=== PATIENT | female | born 1955 | race Caucasian/White ===

== ENCOUNTER → 2018-09-02 | Outpatient (CLI) | payer BC ==
--- NOTE | 2018-09-05 10:41 | MM ---
Reason for exam: screening (asymptomatic). Last mammogram was performed 1 year ago. History: Patient is postmenopausal. Family history of breast cancer in maternal aunt at age 50, breast cancer in maternal aunt, and breast cancer in paternal aunt at age 60. Benign stereotactic core biopsy of the left breast, August 12, 2004. Took estrogen for 14 years beginning at age 45. Physical Findings: A clinical breast exam by your physician is recommended on an annual basis and results should be correlated with mammographic findings. MG Screening Mammo w CAD Bilateral CC and MLO view(s) were taken. Prior study comparison: August 27, 2017, bilateral MG screening mammo w CAD. August 07, 2016, bilateral MG screening mammo w CAD. There are scattered fibroglandular densities. Stable benign calcifications. There is no discrete abnormality. ASSESSMENT: Benign, BI-RAD 2 RECOMMENDATION: Routine screening mammogram of both breasts in 1 year.
== END ==
LOC: RADMAMWWP 07:58
PROVIDERS: ATTEND Obstetrics & Gynecology
DX: Z12.31 Encounter for screening mammogram for malignant neoplasm of breast (principal); Z80.3 Family history of malignant neoplasm of breast
CPT/HCPCS: 77067

== ENCOUNTER → 2019-09-05 | Outpatient (CLI) | payer BC ==
--- NOTE | 2019-09-05 13:18 | MM ---
Reason for exam: screening (asymptomatic). Last mammogram was performed 1 year ago. History: Patient is postmenopausal. Family history of breast cancer in maternal aunt at age 50, breast cancer in maternal aunt, and breast cancer in paternal aunt at age 60. Benign stereotactic core biopsy of the left breast, August 12, 2004. Took estrogen for 14 years beginning at age 45. Physical Findings: A clinical breast exam by your physician is recommended on an annual basis and results should be correlated with mammographic findings. MG Screening Mammo w CAD Bilateral CC and MLO view(s) were taken. XCCL view(s) were taken of the left breast. Prior study comparison: September 02, 2018, bilateral MG screening mammo w CAD. August 27, 2017, bilateral MG screening mammo w CAD. There are scattered fibroglandular densities. There are benign appearing round calcifications bilaterally. Previous mammotome biopsy in the left breast. Asymmetric breast tissue left upper quadrant, stable. There is no discrete abnormality. ASSESSMENT: Benign, BI-RAD 2 RECOMMENDATION: Routine screening mammogram of both breasts in 1 year.
== END | disposition home or self-care (01) ==
LOC: RADMAMWWP 10:58
PROVIDERS: ATTEND Obstetrics & Gynecology
DX: Z12.31 Encounter for screening mammogram for malignant neoplasm of breast (principal); Z80.3 Family history of malignant neoplasm of breast
CPT/HCPCS: 77067

== ENCOUNTER → 2019-09-08 | Outpatient (CLI) | payer BC ==
--- NOTE | 2019-09-08 13:24 | BD ---
EXAMINATION TYPE: Axial Bone Density DATE OF EXAM: 09/08/2019 COMPARISON: 08/18/2014 CLINICAL HISTORY: Z 78.0 Height: 64 in Weight: 238 FRAX RISK QUESTIONS: Alcohol (3 or more units per day): no Family History (Parent hip fracture): no Glucocorticoids (More than 3mos): topical for skin condition; on & off since February (Ex: prednisone, prednisolone, methylprednisolone, dexamethasone, and hydrocortisone). History of Fracture in Adulthood: no Secondary Osteoporosis: 1. Type 1 Diabetes: no 2. Hyperthyroidism: no 3. Menopause before 45: no 4. Malnutrition: no 5. Chronic liver disease: no Rheumatoid Arthritis: no Current Tobacco Use: no RISK FACTORS HISTORY OF: Family History of Osteoporosis: no Active: yes Diet low in dairy products/other sources of calcium: no Postmenopausal woman: yes Take estrogen and/or progesterone medications: not now How long: age [age] Lost more than 2 inches in height since high school: no Frequent falls: no Poor Health: no Hyperparathyroidism: no Adrenal Insufficiency: no MEDICATIONS: Prednisone or other steroids: topical cream for skin condition; on & off since February Thyroid Medications: yes Which medication: Levothyroxine How Long: at least 10 years Osteoporosis Medications: no Additional Medications: blood pressure med Additional History: total left knee 2016; psoriatic arthritis, osteoarthritis, degenerative disc dise ase; complete hysterectomy age 45 EXAM MEASUREMENTS: Bone mineral densitometry was performed using the [employer] System. Bone mineral density as measured about the Lumbar spine is: ----- L1-L4(G/cm2): 1.321 T Score Values are as follows: ----- L2: 0.6 ----- L3: 1.8 ----- L4: 1.4 ----- L1-L4: 1.2 Bone mineral density has: Decreased -1.9% since study of: 08/18/2014 Bone mineral density about the R hip (g/cm2): 1.215 Bone mineral density about the L hip (g/cm2): 1.132 T Score values are as follows: -----R Neck: 1.3 -----L Neck: 0.7 -----R Total: 2.4 -----L Total: 2.2 Bone mineral density has:changed 0.0% since study of: 08/18/2014 IMPRESSION: Normal (Values between +1 and -1 indicate normal bone mass). Consider repeating this study in 5 year s or sooner if there is some new clinical indication. NOTE: T-SCORE=SD OF THE YOUNG ADULT MEAN.
== END ==
LOC: RADBDWWP 10:45
PROVIDERS: ATTEND Obstetrics & Gynecology
DX: N95.1 Menopausal and female climacteric states (principal)
CPT/HCPCS: 77080

== ENCOUNTER → 2019-10-30 | Outpatient (CLI) | payer BC ==
[2019-10-30 10:04] LABS: Basophils % (A) 1 %; Eosinophils # (A) 0.2 k/uL (0-0.7); Eosinophils % (A) 4 %; HCT 43.6 % (34.0-46.0); HGB 14.1 gm/dL (11.4-16.0); Lymphocytes # (A) 1.3 k/uL (1.0-4.8); Lymphocytes % (A) 28 %; MCH 30.1 pg (25.0-35.0); MCHC 32.3 g/dL (31.0-37.0); Mean Platelet Volume 7.5; Monocytes # (A) 0.3 k/uL (0-1.0); Monocytes % (A) 7 %; Neutrophils # (A) 2.6 k/uL (1.3-7.7); Neutrophils % (A) 57 %; Platelet Count 324 k/uL (150-450); RBC 4.67 m/uL (3.80-5.40); RDW 12.7 % (11.5-15.5); WBC 4.6 k/uL (3.8-10.6)
[2019-10-30 10:06] LABS: MCV 93.3 fL (80.0-100.0)
[2019-10-30 15:56] LABS: African American GFR (CKD) 78.3 (60.0-200.0); Non-African American GFR(CKD) 67.6 (60.0-200.0)
[2019-10-31 13:36] LABS: Hepatitis BE Antibody NEG (Negative)
[2019-10-31 13:38] LABS: Hepatitis BE Antigen NEG (Negative)
== END | disposition home or self-care (01) ==
LOC: LABWHC1 08:29
PROVIDERS: ATTEND Dermatology MOHS-Micrographic Surgery
DX: L40.0 Psoriasis vulgaris (principal); L40.59 Other psoriatic arthropathy; L40.8 Other psoriasis
CPT/HCPCS: 36415; 82565; 84450; 84460; 85025; 86038; 86480; 86707; 87350

== ENCOUNTER → 2020-05-03 | Outpatient (CLI) | payer BC ==
[2020-05-03 16:42] LABS: Basophils # (A) 0.1 k/uL (0-0.2); Basophils % (A) 1 %; Eosinophils # (A) 0.2 k/uL (0-0.7); Eosinophils % (A) 4 %; HCT 46.8 % (34.0-46.0); HGB 15.1 gm/dL (11.4-16.0); Lymphocytes # (A) 1.8 k/uL (1.0-4.8); Lymphocytes % (A) 31 %; MCH 31.1 pg (25.0-35.0); MCHC 32.4 g/dL (31.0-37.0); Monocytes # (A) 0.5 k/uL (0-1.0); Monocytes % (A) 9 %; Neutrophils % (A) 52 %; Platelet Count 255 k/uL (150-450); RBC 4.87 m/uL (3.80-5.40); RDW 13.3 % (11.5-15.5); WBC 5.8 k/uL (3.8-10.6)
[2020-05-04 14:58] LABS: African American GFR (CKD) 61.4 (60.0-200.0)
== END | disposition home or self-care (01) ==
LOC: LABWHC1 14:56
PROVIDERS: ATTEND Physician Assistant Medical
DX: L40.0 Psoriasis vulgaris (principal); L40.59 Other psoriatic arthropathy; L40.8 Other psoriasis
CPT/HCPCS: 36415; 82565; 84450; 84460; 84520; 85025

== ENCOUNTER → 2020-09-28 | Outpatient (CLI) | payer MEDICARE ==
--- NOTE | 2020-09-29 15:33 | US ---
EXAMINATION TYPE: US abdomen complete DATE OF EXAM: 09/28/2020 COMPARISON: NONE CLINICAL HISTORY: right upper quadrant pain R10.9. EXAM MEASUREMENTS: Liver Length: 158 cm Gallbladder Wall: 0.3 cm CBD: 0.6 cm Spleen: 11.6 cm Right Kidney: 8.9 x 4.3 x 5.0 cm Left Kidney: 10.0 x 5.6 x 5.2 cm Pancreas: visualized portions wnl Liver: wnl Gallbladder: large mobile stone with shadowing. Gallbladder wall thickness is borderline. No pericho lecystic fluid is evident Evidence for sonographic Art's sign: No CBD: wnl Spleen: wnl Right Kidney: No hydronephrosis or masses seen Left Kidney: No hydronephrosis or masses seen Upper IVC: wnl Abd Aorta: wnl IMPRESSION: 1. Cholelithiasis
== END | disposition home or self-care (01) ==
LOC: RADUSWWP 15:42
PROVIDERS: ATTEND Internal Medicine
DX: K80.20 Calculus of gallbladder without cholecystitis without obstruction (principal)
CPT/HCPCS: 76700

== ENCOUNTER → 2020-09-29 | Outpatient (CLI) | payer MEDICARE ==
--- NOTE | 2020-09-30 10:14 | XR ---
EXAMINATION TYPE: XR chest 2V DATE OF EXAM: 09/29/2020 COMPARISON: 09/29/2020 TECHNIQUE: PA and lateral views submitted. HISTORY: Positive TB test FINDINGS: The lungs are clear and there is no pneumothorax, pleural effusion, or focal pneumonia. Hypertrophi c change of the spine. Hyperinflation lungs. No overt failure. IMPRESSION: 1. No acute process.
== END | disposition home or self-care (01) ==
LOC: RAD 15:46
PROVIDERS: ATTEND Physician Assistant Medical
DX: Z51.81 Encounter for therapeutic drug level monitoring (principal); Z79.899 Other long term (current) drug therapy; L40.0 Psoriasis vulgaris
CPT/HCPCS: 71046

== ENCOUNTER 2020-10-12 06:39 | Day surgery (SDC) | payer MEDICARE ==
[2020-10-07 11:38] VITALS: BMI 41.5
[~2020-10-12 06:39] MED LIST: ACETAMINOPHEN TAB 500 MG TAB PO PRN; DEXAMETHASONE SOD PHOSPHATE 4 MG/ML 1 ML VIAL IV ONE; HEPARIN SODIUM,PORCINE 5,000 UNIT/ML 1 ML VIAL SQ PRN; ONDANSETRON 4 MG/2 ML VIAL IVP ONE
[2020-10-12] MEDS ORDERED: HYDROmorphone 0.5 MG/0.5 ML SYRINGE IVP PRN (07:00)
[2020-10-12] MEDS: LACTATED RINGERS 1,000 ML IV SCH ×2 (07:19→08:00)
[2020-10-12] MEDS ORDERED: PROPOFOL 10 MG/ML 20 ML VIAL IV ONE (07:55)
[2020-10-12] MEDS ORDERED: NEOSTIGMINE 1 MG/ML 10 ML VIAL ONE (07:55)
[2020-10-12] MEDS ORDERED: LIDOCAINE 1% INJ 10MG/ML (20 ML MDV) ONE (07:55)
[2020-10-12] MEDS ORDERED: MIDAZOLAM 2 MG/2 ML VIAL ONE (07:55)
[2020-10-12] MEDS ORDERED: ROCURONIUM 10 MG/ML (10 ML VIAL) IV ONE (07:55)
[2020-10-12] MEDS ORDERED: SUCCINYLCHOLINE CHLORIDE 100 MG/5 ML SYR IV ONE (07:55)
[2020-10-12] MEDS ORDERED: GLYCOPYRROLATE 0.2 MG/ML 2 ML VIAL ONE (07:55)
[2020-10-12] MEDS ORDERED: fentaNYL (PF) 50 MCG/ML 2 ML AMP ONE (07:55)
[2020-10-12] MEDS ORDERED: BUPIVACAINE (PF) 0.5% 30 ML VIAL SQ ONE (08:25)
--- NOTE | 2020-10-12 08:59 | P.GSHP ---
History of Present Illness H&P Date: 10/12/20 Chief Complaint: Cholelithiasis Is a 65-year-old female with complaints of right quadrant pain. She's had [place] [facility] EVIDENCE OF CHOLELITHIASIS. SHE PRESENTS TODAY FOR LAPAROSCOPIC CHOLECYSTECTOMY Past Medical History Past Medical History: Hyperlipidemia, Hypertension, Skin Disorder, Thyroid Disorder Additional Past Medical History / Comment(s): PSORITIC ARTHRITIS. PSORIASIS. DEGENERATIVE DISC. HYPOTHRYOID. BREAST CYSTS." DR WATCHING KIDNEY FUNCTION LEVELS-NO NSAIDS" History of Any Multi-Drug Resistant Organisms: None Reported Past Surgical History: Hysterectomy, Joint Replacement, Orthopedic Surgery, Tonsillectomy Additional Past Surgical History / Comment(s): ORTHO: LEFT KNEE SCOPE, LEFT FOOT. D & C, TOTAL LEFT KNEE SURGERY Past Anesthesia/Blood Transfusion Reactions: No Reported Reaction Smoking Status: Never smoker - Past Family History Father Family Medical History: COPD, Diabetes Mellitus Mother Family Medical History: Congestive Heart Failure (CHF), COPD, Hypertension Additional Family Medical History / Comment(s): TB CHILD Medications and Allergies Home Medications Medication Instructions Recorded Confirmed Type Acetaminophen Tab [Tylenol] 500 mg PO Q4-6H PRN 10/22/15 10/12/20 History Cinnamon Bark [Cinnamon] 2,000 mg PO DAILY 10/22/15 10/12/20 History Furosemide [Lasix] 20 mg PO QAM PRN 10/22/15 10/12/20 History Levothyroxine Sodium [Synthroid] 75 mcg PO QAM 10/22/15 10/12/20 History Magnesium Oxide [Mag-Ox] 250 mg PO DAILY 11/01/15 10/12/20 History Adalimumab [Humira Pen] 40 mg SQ [id number] 10/07/20 10/12/20 History Stephan/D3/Mag11/Zinc/Financial Operations Analyst/[place]/Bor 1 each PO DAILY 10/07/20 10/12/20 History [Caltrate 600+D Plus Tablet] Cholecalciferol [Vitamin D3 (25 50 mcg PO DAILY 10/07/20 10/12/20 History Mcg = 1000 Iu)] Clobetasol Propionate/Emoll 1 applic TOPICAL DAILY 10/07/20 10/12/20 History [Clobetasol Emulsion 0.05% Foam] L.acidoph,Paracasei, B.lactis 1 each PO DAILY 10/07/20 10/12/20 History [Probiotic] Spironolactone-Hctz 25-25Mg 1 each PO DAILY 10/07/20 10/12/20 History [Aldactazide 25-25Mg] Turmeric 300-160 1 tab PO DAILY 10/07/20 10/12/20 History Vit C,Biotin,Collagen 1 tab PO DAILY 10/08/20 10/12/20 History Betamethasone Dipropionate 1 applic TOPICAL DAILY 10/12/20 10/12/20 History [Diprolene 0.05% Ointment] Allergies Allergy/AdvReac Type Severity Reaction Status Date / Time adhesive tape Allergy Rash/Hives Verified 10/12/20 07:11 celecoxib [From Celebrex] Allergy Ankle Verified 10/12/20 07:11 Swelling NSAIDS (Non-Steroidal AdvReac WAS TOLD Verified 10/12/20 07:11 Anti-Inflamma BY DR NOT TO TAKE DUE TO HER KIDNEY FUNCTION SULFAZALAZINE Allergy Swelling Uncoded 10/12/20 07:11 Surgical - Exam Vital Signs Temp Pulse Resp BP Pulse Ox 98.7 F 80 18 165/77 95 10/12/20 07:17 10/12/20 07:17 10/12/20 07:17 10/12/20 07:17 10/12/20 07:17 - General well developed, well nourished, no distress - Eyes PERRL - ENT normal pinna - Neck no masses - Respiratory normal expansion - Cardiovascular Rhythm: regular - Abdomen Abdomen: soft, non tender Assessment and Plan Assessment: Lithiasis We'll perform laparoscopic cholecystectomy
--- NOTE | 2020-10-12 09:01 | P.OP ---
Date of Procedure: 10/12/20 Preoperative Diagnosis: Cholecystitis Cholelithiasis Postoperative Diagnosis: Cholecystitis Cholelithiasis Procedure(s) Performed: Laparoscopic cholecystectomy Anesthesia: PRISCILLA Surgeon: Efrain Neves Estimated Blood Loss (ml): 5 Pathology: other (Gallbladder) Condition: stable Disposition: PACU Description of Procedure: The patient was placed on the operating table. The patient received a general endotracheal tube anesthesia. The patients abdomen was prepped and draped in the usual sterile fashion. Through an infraumbilical stab incision, the fascia of the anterior abdominal wall was grasped with a pair of Kochers and then the Veress needle was placed in the peritoneal cavity. Position of the Veress needle was confirmed with positive drop test. The abdomen was then insufflated. After adequate insufflation, the 10 mm trocar was placed in the peritoneal cavity. Following this the laparoscope was placed in the peritoneal cavity. The patient was placed in the head-up, right side up position and then a 5 mm trocar was placed in the right lateral and right subcostal position under direct visualization. A 8 mm trocar was placed in the epigastric position. The gallbladder was grasped in the fundus and infundibulum. Traction on the gallbladder was placed in the lateral and the cephalad positions. The triangle of Calot was visualized.. The cystic duct was bluntly dissected until the union of the cystic duct and common bile duct wa s seen. A critical view of safety was achieved. The cystic duct was then divided and sealed with the Harmonic scissors. A PDS Endoloop was then placed throughout the cystic duct stump. The cystic artery divided and sealed with the Harmonic scissors. The gallbladder was then removed from the liver bed using Harmonic scissors. The gallbladder was then extracted through the epigastric port site. Operative field was checked for any bleeding spots and Harmonic scissors was used to coagulate the liver bed. The abdomen was irrigated. The trocars were removed. The skin was closed using interrupted 3-0 Vicryl suture. Dermabond dressing were applied. The patient tolerated the procedure well.
[2020-10-12 09:08] VITALS: TEMP 98
[2020-10-12 10:12] VITALS: RESP 16
[2020-10-12 10:33] VITALS: BP 121/75; PULSE 59
== END 2020-10-12 11:06 | disposition home or self-care (01) ==
LOC: OR 06:39
PROVIDERS: ATTEND Surgery
DX: K80.10 Calculus of gallbladder with chronic cholecystitis without obstruction (principal); E78.5 Hyperlipidemia, unspecified; K21.9 Gastro-esophageal reflux disease without esophagitis; I10 Essential (primary) hypertension; L40.50 Arthropathic psoriasis, unspecified; E03.9 Hypothyroidism, unspecified; N60.19 Diffuse cystic mastopathy of unspecified breast; Z90.710 Acquired absence of both cervix and uterus; Z96.652 Presence of left artificial knee joint; Z98.890 Other specified postprocedural states; Z83.3 Family history of diabetes mellitus; Z82.5 Family history of asthma and other chronic lower respiratory diseases; Z82.49 Family history of ischemic heart disease and other diseases of the circulatory system; Z79.890 Hormone replacement therapy; Z79.899 Other long term (current) drug therapy; Z88.6 Allergy status to analgesic agent; Z91.09 Other allergy status, other than to drugs and biological substances
CPT/HCPCS: 88304; 47562; J2250; J1644; J1100; J2710; J0690; J2405; J2001; J3010; J0330; J2704

== ENCOUNTER → 2021-01-31 | Outpatient (CLI) | payer BC, MEDICARE ==
--- NOTE | 2021-02-01 09:40 | MM ---
Reason for exam: screening (asymptomatic). Last mammogram was performed 1 year and 5 months ago. History: Patient is postmenopausal. Family history of breast cancer in maternal aunt at age 50, breast cancer in maternal aunt, and breast cancer in paternal aunt at age 60. Benign stereotactic core biopsy of the left breast, August 12, 2004. Took estrogen for 14 years beginning at age 45. Physical Findings: A clinical breast exam by your physician is recommended on an annual basis and results should be correlated with mammographic findings. MG 3D Screening Mammo W/Cad Bilateral CC and MLO view(s) were taken. Prior study comparison: September 05, 2019, bilateral MG screening mammo w CAD. September 02, 2018, bilateral MG screening mammo w CAD. There are scattered fibroglandular densities. There is no discrete abnormality. No significant changes when compared with prior studies. ASSESSMENT: Negative, BI-RAD 1 RECOMMENDATION: Routine screening mammogram of both breasts in 1 year.
== END | disposition home or self-care (01) ==
LOC: RADMAMWWP 08:49
PROVIDERS: ATTEND Obstetrics & Gynecology
DX: Z12.31 Encounter for screening mammogram for malignant neoplasm of breast (principal); Z78.0 Asymptomatic menopausal state; Z80.3 Family history of malignant neoplasm of breast
CPT/HCPCS: 77063; 77067

== ENCOUNTER → 2021-09-22 | Outpatient (CLI) | payer MEDICARE ==
--- NOTE | 2021-09-22 10:08 | XR ---
EXAMINATION TYPE: XR chest 2V DATE OF EXAM: 09/22/2021 COMPARISON: NONE TECHNIQUE: PA and lateral views submitted. HISTORY: Routine physical FINDINGS: The lungs are clear and there is no pneumothorax, pleural effusion, or focal pneumonia. Hypertrophi c and degenerative change of the spine. No failure. IMPRESSION: 1. No acute process.
== END | disposition home or self-care (01) ==
LOC: RADXRMAIN 09:41
PROVIDERS: ATTEND Physician Assistant Medical
DX: Z00.00 Encounter for general adult medical examination without abnormal findings (principal); L40.0 Psoriasis vulgaris
CPT/HCPCS: 71046

== ENCOUNTER → 2022-08-15 | Outpatient (CLI) | payer MEDICARE ==
--- NOTE | 2022-08-16 08:58 | MM ---
Reason for Exam: Screening (asymptomatic). Last mammogram was performed 1 year(s) and 7 month(s) ago. Patient History: Menarche at age 12. First Full-Term at age 29. Left ovary removed at age 45. Right ovary removed at age 45. Hysterectomy at age 45. Postmenopausal. Estrogen for 14 years from age 45 until age 59. 08/12/2004, Benign Stereotactic Core Biopsy on the left side. Paternal aunt had breast cancer, age 60. Maternal aunt had breast cancer, age 50. Maternal aunt had breast cancer. Risk Values: Stacy 5 year model risk: 2.2%. NCI Lifetime model risk: 7.6%. Prior Study Comparison: 09/02/2018 Bilateral Screening Mammogram, [facility]. 09/05/2019 Bilateral Screening Mammogram, [facility] 01/31/2021 Bilateral Screening Mammogram, [facility]. Tissue Density: The breast tissue is heterogeneously dense. This may lower the sensitivity of mammography. Findings: Analyzed By CAD. Left biopsy clip. There is no suspicious group of microcalcifications or new suspicious mass in either breast. Overall Assessment: Negative, BI-RAD 1 Management: Screening Mammogram of both breasts in 1 year. A clinical breast exam by your physician is recommended on an annual basis and results should be correlated with mammographic findings. [facility] will attempt to contact patient to return for supplemental views and ultrasound if indicated. Electronically signed and approved by: Adonis Flower DO
== END ==
LOC: RADMAMWWP 07:40
PROVIDERS: ATTEND Obstetrics & Gynecology
DX: Z12.31 Encounter for screening mammogram for malignant neoplasm of breast (principal); Z78.0 Asymptomatic menopausal state; Z90.721 Acquired absence of ovaries, unilateral; Z80.3 Family history of malignant neoplasm of breast; Z98.890 Other specified postprocedural states
CPT/HCPCS: 77067

== ENCOUNTER → 2022-10-09 | Outpatient (CLI) | payer MEDICARE ==
--- NOTE | 2022-10-09 15:57 | XR ---
EXAMINATION TYPE: XR chest 2V DATE OF EXAM: 10/09/2022 COMPARISON: NONE TECHNIQUE: PA and lateral views submitted. HISTORY: Cough FINDINGS: The lungs are clear and there is no pneumothorax, pleural effusion, or focal pneumonia. Heart size normal and no overt failure. Osseous structures demonstrate hypertrophic and degenerative changes of the spine. IMPRESSION: 1. No acute process.
== END | disposition home or self-care (01) ==
LOC: RADXRMAIN 15:30
PROVIDERS: ATTEND Physician Assistant Medical
DX: L40.0 Psoriasis vulgaris (principal); R05.9 Cough, unspecified
CPT/HCPCS: 71046

== ENCOUNTER → 2023-08-21 | Outpatient (CLI) | payer MEDICARE ==
--- NOTE | 2023-08-22 12:02 | MM ---
Reason for Exam: Screening (asymptomatic). Last screening mammogram was performed 12 month(s) ago. Patient History: Menarche at age 12. First Full-Term at age 29. Left ovary removed at age 45. Right ovary removed at age 45. Hysterectomy at age 45. Postmenopausal. Patient has history of breast feeding. Estrogen for 14 years from age 45 until age 59. 08/12/2004, Benign Stereotactic Core Biopsy on the left side. Paternal aunt had breast cancer, age 60. Maternal aunt had breast cancer, age 50. Maternal aunt had breast cancer. Risk Values: Stacy 5 year model risk: 2.2%. NCI Lifetime model risk: 7.2%. Prior Study Comparison: 09/05/2019 Bilateral Screening Mammogram, [facility]. 01/31/2021 Bilateral Screening Mammogram, [facility]. 08/15/2022 Bilateral MG screening mammo w CAD, [facility]. Tissue Density: The breast tissue is heterogeneously dense. This may lower the sensitivity of mammography. Findings: Analyzed By CAD. There is no suspicious group of microcalcifications or new suspicious mass in either breast. Overall Assessment: Benign, BI-RAD 2 Management: Screening Mammogram of both breasts in 1 year. . Patient should continue monthly self-breast exams. A clinical breast exam by your physician is recommended on an annual basis. This exam should not preclude additional follow-up of suspicious palpable abnormalities. Note on Stacy scores and lifetime risk: 1. A Stacy score greater than 3% is considered moderate risk. If this is the case, consider specialist referral to assess eligibility for a risk reducing agent. 2. If overall lifetime risk for the development of breast cancer is 20% or higher, the patient may qualify for future screening with alternating mammogram and breast MRI. Electronically signed and approved by: Mario Smith M.D. Radiologis
== END | disposition home or self-care (01) ==
LOC: RADMAMWWP 08:02
PROVIDERS: ATTEND Obstetrics & Gynecology
DX: Z12.31 Encounter for screening mammogram for malignant neoplasm of breast (principal); Z78.0 Asymptomatic menopausal state; Z80.3 Family history of malignant neoplasm of breast
CPT/HCPCS: 77063; 77067

== ENCOUNTER → 2023-08-27 | Outpatient (CLI) | payer MEDICARE ==
--- NOTE | 2023-08-28 09:07 | XR ---
EXAMINATION TYPE: XR chest 2V DATE OF EXAM: 08/27/2023 COMPARISON: 10/09/2022 TECHNIQUE: PA and lateral views submitted. HISTORY: Yearly physical FINDINGS: The lungs are clear and there is no pneumothorax, pleural effusion, or focal pneumonia. Heart size normal and no overt failure. Osseous structures demonstrate hypertrophic and degenerative changes of the spine. IMPRESSION: 1. No acute process.
== END | disposition home or self-care (01) ==
LOC: RADXRMAIN 16:35
PROVIDERS: ATTEND Dermatology
DX: L40.0 Psoriasis vulgaris (principal); L40.59 Other psoriatic arthropathy; L30.9 Dermatitis, unspecified; L40.8 Other psoriasis
CPT/HCPCS: 71046

== ENCOUNTER → 2024-09-15 | Outpatient (CLI) | payer MEDICARE ==
--- NOTE | 2024-09-16 14:38 | MM ---
Reason for Exam: Screening (asymptomatic). Last mammogram was performed 1 year(s) and 1 month(s) ago. Patient History: Menarche at age 12. First Full-Term at age 29. Left ovary removed at age 45. Right ovary removed at age 45. Hysterectomy at age 45. Postmenopausal. Patient has history of breast feeding. Estrogen for 14 years from age 45 until age 59. 08/12/2004, Benign Stereotactic Core Biopsy on the left side. Paternal aunt had breast cancer, age 60. Maternal aunt had breast cancer, age 50. Maternal aunt had breast cancer. Risk Values: Stacy 5 year model risk: 2.3%. NCI Lifetime model risk: 6.9%. Prior Study Comparison: 01/31/2021 Bilateral Screening Mammogram, [facility]. 08/15/2022 Bilateral MG screening mammo w CAD, [facility]. 08/21/2023 Bilateral MG 3D screening mammo w/cad, [facility]. Tissue Density: There are scattered areas of fibroglandular density. Findings: Analyzed By CAD. Left breast biopsy clip. Right breast: There is no suspicious group of microcalcifications or new suspicious mass. Left breast: There is no suspicious group of microcalcifications or new suspicious mass. Overall Assessment: Negative, BI-RAD 1 Management: Screening Mammogram of both breasts in [address] [facility] will attempt to contact patient to return for supplemental views and ultrasound if indicated. Patient should continue monthly self-breast exams. A clinical breast exam by your physician is recommended on an annual basis. This exam should not preclude additional follow-up of suspicious palpable abnormalities. Note on Stacy scores and lifetime risk: 1. A Stacy score greater than 3% is considered moderate risk. If this is the case, consider specialist referral to assess eligibility for a risk reducing agent. 2. If overall lifetime risk for the development of breast cancer is 20% or higher, the patient may qualify for future screening with alternating mammogram and breast MRI. [facility], , 09/15/2024 9:00 AM. Electronically signed and approved by: Adonis Flower DO
== END | disposition home or self-care (01) ==
LOC: RADMAMWWP 08:38
PROVIDERS: ATTEND Family Medicine
DX: Z12.31 Encounter for screening mammogram for malignant neoplasm of breast (principal); Z90.722 Acquired absence of ovaries, bilateral; Z78.0 Asymptomatic menopausal state; Z80.3 Family history of malignant neoplasm of breast; R92.323 Mammographic fibroglandular density, bilateral breasts; Z98.82 Breast implant status
CPT/HCPCS: 77067